=== PATIENT | female | born 1995 | race Caucasian/White ===

== ENCOUNTER → 2019-08-30 13:55 | Observation (INO) ==
[2019-08-30 12:02] LABS: Hematocrit 37.3 % (35.3-44.9); Hemoglobin 12.6 g/dL (11.5-15.4)
[~2019-08-30 13:55] MED LIST: Ketorolac 30 MG/ML VIAL IVP ONE; Ringers Solution, Lactated 1,000 ML IVC SCH; Ringers Solution, Lactated 1,000 ML IVC STA; Ringers Solution, Lactated 1,000 ML ONE; miSOPROStoL 100 MCG TABLET PO STA
== END | disposition home or self-care (01) ==
LOC: 1NENULAB
PROVIDERS: ADMIT Obstetrics & Gynecology; ATTEND Obstetrics & Gynecology

== ENCOUNTER 2020-06-14 12:29 | Inpatient (IN) ==
[2020-06-14] MEDS ORDERED: Naloxone 0.4 MG/ML INJ IVP PRN (12:41)
[2020-06-14] MEDS ORDERED: Ondansetron 4 MG/2 ML VIAL IVP PRN (12:41)
[2020-06-14] MEDS ORDERED: Metoclopramide 10 MG/2 ML VIAL IVP PRN (12:41)
[2020-06-14] MEDS ORDERED: *HR* Nalbuphine 10 MG/ML AMPUL IV PRN (12:41)
[2020-06-14] MEDS ORDERED: Famotidine 20 MG/2 ML VIAL IVP PRN (12:41)
[2020-06-14] MEDS ORDERED: Azithromycin 500 MG in 0.9 % Sodium Chloride 250 ML IVPB ONE (12:41)
[2020-06-14 13:25] LABS: Basophils % 0.1 %; Eosinophils % 0.1 %; Hematocrit 36.9 % (35.3-44.9); Hemoglobin 12.4 g/dL (11.5-15.4); Immature Granulocytes % 0.3 % (0-4); Lymphocytes # 1.7 K/mcL (0.6-4.6); Mean Corpuscular HGB Conc 33.6 g/dL (31.6-35.5); Mean Corpuscular Hemoglobin 30.5 pg (28.0-33.3); Mean Corpuscular Volume 90.9 fL (83.0-100.0); Mean Platelet Volume 12.1 fL (9.4-12.4); Monocytes # 0.5 K/mcL (0.0-1.3); Monocytes % 6.6 %; Neutrophils # 5.6 K/mcL (1.6-8.9); Platelet Count 216 K/mcL (140-400); Red Blood Count 4.06 M/mcL (3.82-4.97); Red Cell Distribution Width 12.6 % (11.5-14.5); Segmented Neutrophils % 71.9 %; White Blood Count 7.9 K/mcL (4.3-11.1)
[2020-06-14 13:33] LABS: Amphetamine Screen,Urine Negative ng/mL (Cutoff=1000); Barbiturate Screen,Urine Negative ng/mL (Cutoff=200); Benzodiazepines Screen,Urine Negative ng/mL (Cutoff=200); Cannabinoid Screen,Urine Negative ng/mL (Cutoff = 50); Cocaine Screen,Urine Negative ng/mL (Cutoff= 300); Opiate Screen,Urine Negative ng/mL (Cutoff=300); Phencyclidine Screen,Urine Negative ng/mL (Cutoff=25)
[2020-06-14 13:47] LABS: Bilirubin,Urine Negative (Negative); Blood,Urine Negative (Negative); Clarity,Urine Clear (Clear); Color,Urine Light-Yellow (Yellow); Glucose,Urine (UA) Normal (Normal); Ketones,Urine Negative (Negative); Leukocyte Esterase,Urine Negative (Negative); Nitrite,Urine Negative (Negative); PH,Urine 6.5 pH Units (5.0-8.0); Protein,Urine Trace mg/dL (Neg-Trace); Urobilinogen,Urine Normal (Normal)
[2020-06-14] MEDS ORDERED: Acetaminophen 325 MG TABLET PO PRN (14:17)
[2020-06-14 14:25] LABS: Creatinine,Urine 113 mg/dL; Protein/Creatinine Ratio,Urine 0.25 mg/mg (0.00-0.20)
[2020-06-14 14:38] LABS: Alanine Aminotransferase 11 Units/L (7-52); Aspartate Amino Transferase 15 Units/L (13-39); BUN/Creatinine Ratio 14 (6-26); Blood Urea Nitrogen 9 mg/dL (6-20); Lactate Dehydrogenase 144 Units/L (140-271); Uric Acid 5.6 mg/dL (2.3-7.6); eGFR For African Americans > 60 (> 60); eGFR For Non-African Americans > 60 (> 60)
[2020-06-14] MEDS ORDERED: Oxytocin 20 units/ LR 1000 mL 20 UNIT/1,000 ML BAG IVC SCH (16:15)
[2020-06-14] MEDS ORDERED: Oxytocin 20 units/ LR 1000 mL 20 UNIT/1,000 ML BAG IVC ONE (16:19)
[2020-06-14] MEDS: Ringers Solution, Lactated 1,000 ML IVC SCH ×2 (16:23→22:42)
[2020-06-15] MEDS ORDERED: Rho Immune Globulin 1,500 UNIT SYRINGE IM PRN (03:42)
[2020-06-15] MEDS ORDERED: Benzocaine/Menthol 56 GM AEROSOL SPRAY TP PRN (03:42)
[2020-06-15] MEDS ORDERED: Oxytocin 20 units/ LR 1000 mL 20 UNIT/1,000 ML BAG IVC ONE (03:42)
[2020-06-15] MEDS ORDERED: Measles/Mumps/Rubella Vacc 0.5 ML VIAL SQ PRN (03:42)
[2020-06-15] MEDS ORDERED: Lanolin 7 G OINT...G. TP PRN (03:42)
[2020-06-15] MEDS ORDERED: Oxytocin 20 units/ LR 1000 mL 20 UNIT/1,000 ML BAG IVC SCH (03:45)
[2020-06-15] MEDS ORDERED: Acetaminophen 325 MG TABLET PO SCH (06:00)
[2020-06-15] MEDS: Ibuprofen 600 MG TABLET PO SCH ×2 (06:30→20:01)
[2020-06-15] MEDS: Prenatal Vit/FA 1 EACH TABLET PO SCH (08:36)
[2020-06-16 05:02] LABS: Basophils % 0.1 %; Eosinophils % 0.1 %; Immature Granulocytes % 0.3 % (0-4); Lymphocytes # 1.9 K/mcL (0.6-4.6); Lymphocytes % 26.3 %; Mean Corpuscular HGB Conc 33.9 g/dL (31.6-35.5); Mean Corpuscular Hemoglobin 31.3 pg (28.0-33.3); Mean Corpuscular Volume 92.3 fL (83.0-100.0); Mean Platelet Volume 11.9 fL (9.4-12.4); Monocytes # 0.4 K/mcL (0.0-1.3); Monocytes % 5.4 %; Neutrophils # 4.9 K/mcL (1.6-8.9); Platelet Count 132 K/mcL (140-400); Red Blood Count 3.36 M/mcL (3.82-4.97); Segmented Neutrophils % 67.8 %; White Blood Count 7.2 K/mcL (4.3-11.1)
[2020-06-16 05:03] LABS: Hemoglobin 10.5 g/dL (11.5-15.4)
[2020-06-16 07:48] VITALS: BP 114/71
[2020-06-16] MEDS: Ibuprofen 600 MG TABLET PO SCH (08:56)
[2020-06-16] MEDS: Prenatal Vit/FA 1 EACH TABLET PO SCH (08:56)
== END 2020-06-16 15:00 | disposition home or self-care (01) | DRG 560 ==
LOC: 1NENULAB → OBSVTOIN 12:29 → 1NENUOBS 06-15 06:33
PROVIDERS: ADMIT Registered Nurse; ATTEND Registered Nurse